=== PATIENT | female | born 1990 ===

== ENCOUNTER 2023-01-29 22:18 | Outpatient (CLI) | payer BC ==
[~2023-01-29] VITALS: Ht 154.9 cm; Wt 66.4 kg
[2023-01-29 22:53] LABS: CLARITY,URINE CLEAR; COLOR,URINE YELLOW; GLUCOSE, URINE (UA) NEGATIVE (NEGATIVE); PH,URINE 6.5 (5-9); PROTEIN,URINE NEGATIVE (NEGATIVE)
[2023-01-29 22:54] VITALS: BP 109/64
[2023-01-29 22:54] LABS: AMORPHOUS SEDIMENT,UR MOD AMOR URATES /LPF; BACTERIA,URINE TRACE /HPF; BILIRUBIN,URINE NEGATIVE (NEGATIVE); KETONES,URINE NEGATIVE (NEGATIVE); LEUKOCYTE ESTERASE ,URINE 3+ (NEGATIVE); NITRITE,URINE NEGATIVE (NEGATIVE); RBC,URINE 0-2 /HPF; SQUAMOUS EPITHELIAL CELL,UR >50 /HPF
--- NOTE | 2023-01-30 08:17 | Physician Query-Final Dx ---
KATELYNN,01/30/23 0817: Clinic Account Progress/Dx Physician Query: Please give diagnosis Please include # weeks gestation Date of Service Jan 29, 2023 at 22:18 YARON UNDERWOOD DO 01/30/23 1026: Clinic Account Progress/Dx DIAGNOSIS: Diagnosis 37 wk GA contractions, not in active labor KATELYNN,JunJan 30, 2023 08:17 YARON UNDERWOOD DO Jan 30, 2023 10:26
== END 2023-01-29 23:16 | disposition home or self-care (01) ==
LOC: LDRP 22:18 → WSo 22:18
PROVIDERS: ATTEND Family Medicine
DX: O47.1 False labor at or after 37 completed weeks of gestation (principal); Z3A.37 37 weeks gestation of pregnancy
CPT/HCPCS: 81000; 87088; G0463; 99213

== ENCOUNTER 2023-02-09 19:25 | Outpatient (CLI) | payer BC ==
[~2023-02-09] VITALS: Ht 155 cm; Wt 68.0 kg
[2023-02-09 19:48] VITALS: BP 124/73
[2023-02-09] MEDS ORDERED: PREN-142 PO (20:19)
[2023-02-09 20:24] LABS: BILIRUBIN,URINE NEGATIVE (NEGATIVE); CLARITY,URINE CLEAR; COLOR,URINE YELLOW; GLUCOSE, URINE (UA) NEGATIVE (NEGATIVE); KETONES,URINE NEGATIVE (NEGATIVE); LEUKOCYTE ESTERASE ,URINE 3+ (NEGATIVE); NITRITE,URINE NEGATIVE (NEGATIVE); PROTEIN,URINE NEGATIVE (NEGATIVE)
[2023-02-09 20:25] LABS: AMORPHOUS SEDIMENT,UR MOD AMOR PHOSPHATE /LPF; BACTERIA,URINE MODERATE /HPF
[2023-02-09 20:53] VITALS: BP 105/66
[2023-02-09 21:00] VITALS: BP 105/66
--- NOTE | 2023-02-10 08:10 | Physician Query-Final Dx ---
Clinic Account Progress/Dx Physician Query: Please give diagnosis Please include # weeks gestation Date of Service Feb 09, 2023 at 19:25 ,JunFeb 10, 2023 08:09
== END 2023-02-09 21:00 | disposition home or self-care (01) ==
LOC: LDRP 19:25 → WSo 19:25
PROVIDERS: ATTEND Family Medicine
DX: O62.9 Abnormality of forces of labor, unspecified (principal); Z3A.39 39 weeks gestation of pregnancy
CPT/HCPCS: 81000; 84112; 87088; 99213

== ENCOUNTER 2023-02-14 23:50 | Outpatient (CLI) | payer BC ==
[~2023-02-14] VITALS: Ht 162.6 cm; Wt 68.0 kg
[~2023-02-14 23:50] MED LIST: PREN-142 PO
[2023-02-15 00:12] VITALS: BP 115/56
[2023-02-15 01:55] VITALS: BP 113/74
--- NOTE | 2023-02-16 08:22 | Physician Query-Final Dx ---
,02/16/23 0822: Clinic Account Progress/Dx Physician Query: Please give diagnosis Please include # weeks gestation Date of Service Feb 14, 2023 at 23:50 SEAMUS SEYMOUR MD 02/18/23 1930: Clinic Account Progress/Dx DIAGNOSIS: Diagnosis 40 weeks gestation Rule out rupture of membranes- negative testing ,JunFeb 16, 2023 08:22 SEAMUS SEYMOUR MD Feb 18, 2023 19:30
[2023-02-18] MEDS ORDERED: IBUP-844 PO (08:22)
[2023-02-18] MEDS ORDERED: FERR325T24 PO (08:22)
[2023-02-18] MEDS ORDERED: DOCU100C37 PO (08:22)
== END 2023-02-15 01:30 | disposition home or self-care (01) ==
LOC: WSo 23:50 → LDRP 23:51 → WSo 02-15 01:30
PROVIDERS: ATTEND Family Medicine
DX: O62.9 Abnormality of forces of labor, unspecified (principal); Z3A.00 Weeks of gestation of pregnancy not specified
CPT/HCPCS: 99213

== ENCOUNTER 2023-02-16 07:00 | Inpatient (IN) | payer BC ==
[~2023-02-16] VITALS: Ht 155 cm; Wt 68.0 kg
--- OUTSIDE RECORDS SUMMARY | 2023-02-16 18:52 | XMS REPORT ---
Author Author Formerly [facility] Address Unknown Phone Unavailable Care Team Providers Care C S S Representative Name Role Phone YARON UNDERWOOD Unavailable PROBLEMS Type Condition ICD9-CM Code [id number] Code Onset Dates Condition Status W/U Status Risk SNOMED Code Notes Problem care in second trimester Z34.92 confirmed ALLERGIES No Known Allergies ENCOUNTERS from 1992 to 2022-10-30 Encounter Location Date Provider Diagnosis [facility] [address] [facility] [facility] [id number], [place] [address] Nov, YARON YASMINE Sexually transmitted disease (STD) A64 IMMUNIZATIONS Vaccine Route Administration Date Status 2nd Dose HRSA MODERNA, COVID -19, 0.5mL IM Intramuscular September 26, 2020 Administered 1st Dose COVID-19, mRNA, MOD PABLO, 0.5 mL 2020 IM Intramuscular August 23, 2020 Administered PRIVATE HEP B (ADULT) IM Intramuscular Jul 11, 2022 Ad ministered SOCIAL HISTORY Sex Assigned At : Social History Observation Description Sex Assigned At Unknown Sexual History Question Answer Notes Had sex in the past 12 months (vaginal, oral, or anal)? Yes Have you ever had a Sexually transmitted disease ? No with Men only Use protection? No PHQ2 Question Answer Notes In the last 2 weeks, how oft en have you had little interest or pleasure in doing things? Not at all In the last 2 weeks, how oft en have you been feeling down, depressed, or hopeless? Not at all Total PHQ2 Score 0 Tobacco use other than smoking: Question Answer Notes Are you an other tobacco user? No REASON FOR REFERRAL No Information MEDICATIONS Medication SIG (Take, Route, Fr equency, Duration) Notes Start Date End Date Status 28-0.8 MG 1 tablet Orally Once a day Active Tylenol 325 MG 1 tablet as needed O rally every 4 hrs prn Active REASON FOR VISIT STD treatment (STATE) MEDICAL (GENERAL) HISTORY Type Description Date Hospitalization History childbirth only MENTAL STATUS No Information ASSESSMENTS Encounter Date Diagnosis Assessment Notes Treatment Notes Treatment Clinical Notes Nov, Sexually transmitted disease (STD) (ICD-10 - A64) PLAN OF TREATMENT No Information
--- OUTSIDE RECORDS SUMMARY | 2023-02-16 18:52 | XMS REPORT ---
Author Author Formerly [facility] Address Unknown Phone Unavailable Care Team Providers Care Core Composer Feeder Name Role Phone JLUIS TENA Unavailable PROBLEMS Type Condition ICD9-CM Code [id number] Code Onset Dates Condition Status W/U Status Risk SNOMED Code Notes Problem care in second trimester Z34.92 confirmed ALLERGIES No Known Allergies ENCOUNTERS from 1992 to 2022-10-22 Encounter Location Date Provider Diagnosis [facility] [address] [facility] [id number] [address] Nov, JLUIS TENA Acute vaginitis N76.0 ; Pelvic pain R10.2 and Other specified bacterial agents as the cause of diseases classified elsewhere B96.89 IMMUNIZATIONS Vaccine Route Administration Date Status PRIVATE HEP B (ADULT) IM Intramuscular Jul 11, 2022 Ad ministered 2nd Dose HRSA MODERNA, COVID -19, 0.5mL IM Intramuscular September 26, 2020 Administered 1st Dose COVID-19, mRNA, MOD PABLO, 0.5 mL 2020 IM Intramuscular August 23, 2020 Administered SOCIAL HISTORY Sex Assigned At : Social [...] user? No REASON FOR REFERRAL No Information VITAL SIGNS Height 5'3" in Nov, Height-cm 160.02 cm Nov, Weight 128 lbs Nov, Weight-kg 58.06 kg Nov, Temperature 97.0 degrees Fahrenheit Nov, Heart Rate 76 bpm Nov, Respiratory Rate 18 bpm Nov, Oximetry 98 % Nov, BMI 22.67 kg/m2 Nov, Blood pressure systolic 110 mmHg Nov, Blood pressure diastolic 70 mmHg Nov, MEDICATIONS Medication SIG (Take, Route, Fr equency, Duration) Notes Start Date End Date Status 28-0.8 MG 1 tablet Orally Once a day Active Tylenol 325 MG 1 tablet as needed O rally every 4 hrs prn Active REASON FOR VISIT pelvic pain and pressure with urination since yesterday --yoselin moura MEDICAL (GENERAL) HISTORY Type Description Date Hospitalization History childbirth only MENTAL STATUS No Information ASSESSMENTS Encounter Date Diagnosis Assessment Notes Treatment Notes Treatment Clinical Notes Nov, Pelvic pain (ICD-10 - R10.2) Pelvic Pain: Care Instructions material was printed, Pelvic Pain: Care Instructions material was printed Nov, Acute vaginitis (ICD-10 - N76.0) Vaginitis: Care Instructions material was printed, Vaginitis: Care Instructions material was printed Nov, Other specified bacterial agents as the cause of diseases classified elsewhere (ICD-10 - B96.89) Nov, Other Medications as prescribed, rest as able, push fluids, call/return if symptoms worsen or do not improve. Pediatric UTI's: Avoid giving little girls bubble-baths or allowing her to sit in soapy bath water for very long. It's ok for her to take a bath in plain water, but she should play in the tub first, and wait until the end of the bath before using soap or shampoo, then get out of the tub as soon as possible. Encourage wiping "[id number]". Encourage to sit on the toilet with her legs spread wide open, to avoid small amounts of urine becoming trapped between the labia and causing irritation. Push fluids to maintain hydration and flush urinary track. Adult UTI: 1. Avoid bubble baths. Voiding after sexual intercourse for adult females will assist to flush potential bacteria from the urinary tract. Proper bathroom hygein wiping front to bacl. Maintain proper hydration with lots of water daily avoiding sodas as able. Pushing fluids helps to maintain hydration and flush urinary system. , Pelvic Pain: Care Instructions material was printed, Vaginitis: Care Instructions material was printed PLAN OF TREATMENT Treatment Notes Assessment Notes Clinical Notes Pelvic pain Pelvic Pain: Care In structions material was printed, Pelvic Pain: Care Instructions material was printed Acute vaginitis Vaginitis: Care Inst ructions material was printed, Vaginitis: Care Instructions material was printed Next Appt Details if not improving or regular follow up with pcp Reason: Provider Name:JAKE DODD , 2022-10-22 03:40:00 PM, [address], [place], [address],
--- OUTSIDE RECORDS SUMMARY | 2023-02-16 18:52 | XMS REPORT ---
Author Author [facility] Address Unknown Phone Unavailable Care Team Providers Care Hosiery Pairer Name Role Phone RENITA STANFORD Unavailable PROBLEMS Type Condition ICD9-CM Code [id number] Code Onset Dates Condition Status W/U Status Risk SNOMED Code Notes Problem care in second trimester Z34.92 confirmed Problem Sore throat J02.9 confirmed [id number] Problem Urine troubles R39.89 confirmed [id number] ALLERGIES No Known Allergies ENCOUNTERS from 1992 to 2022-11-22 Encounter Location Date Provider Diagnosis [facility] [address] [facility] [id number] [address] Dec, RENITA STANFORD History of chlamydia Z86.19 ; Encounter to establish care Z76.89 and STD (female) A64 IMMUNIZATIONS Vaccine Route Administration Date Status PRIVATE [...] No Information VITAL SIGNS Height 5'3" in Dec, Height-cm 160.02 cm Dec, Weight 125.6 lbs Dec, Weight-kg 56.97 kg Dec, Temperature 97.3 degrees Fahrenheit Dec, Heart Rate 73 bpm Dec, Respiratory Rate 18 bpm Dec, Oximetry 98 % Dec, BMI 22.25 kg/m2 Dec, Blood pressure systolic 126 mmHg Dec, Blood pressure diastolic 68 mmHg Dec, MEDICATIONS Medication SIG (Take, Route, Fr equency, Duration) Notes Start Date End Date Status 28-0.8 MG 1 tablet Orally Once a day Active Amoxicillin 875 MG 1 tablet Orally Twic e a day for 5 days Nov, Active Tylenol 325 MG 1 tablet as needed O rally every 4 hrs prn Active REASON FOR VISIT Establish Care -[place] GONZALES MEDICAL (GENERAL) HISTORY Type Description Date Hospitalization History childbirth only MENTAL STATUS No Information ASSESSMENTS Encounter Date Diagnosis Assessment Notes Treatment Notes Treatment Clinical Notes Dec, Encounter to establish care (ICD-10 - Z76.89) Make appointment for well woman exam. Fill out EDW paperwork prior to appointment if no insurance coverage. Dec, History of chlamydia (ICD-10 - Z86.19) Patient will be notified of results when available. Dec, STD (female) (ICD-10 - A64) PLAN OF TREATMENT Medication Medication Name Sig Start Date Stop Date Amoxicillin 875 MG 1 tablet Orally Twice a day for 5 d ays Nov, Treatment Notes Assessment Notes Clinical Notes Encounter to establish care Make appoint ment for well woman exam. Fill out EDW paperwork prior to appointment if no insurance coverage. History of chlamydia Patient will be not ified of results when available. Next Appt Details Make appointment for well wo man exam. Reason: Provider Name:JAKE DODD , 2022-11-24 04:20:00 PM, [address], [place], [address],
[2023-02-16 19:28] VITALS: BP 131/62
[2023-02-16] MEDS ORDERED: AMPICILLIN (IV) 2,000 MG in NS (IVPB) 50 ML 50 ML IV ONE (19:48)
[2023-02-16 19:58] LABS: BASOPHILS % (AUTO) 1 % (0-10); EOSINOPHILS # (AUTO) 0.8 10^3/uL (0.0-0.3); EOSINOPHILS % (AUTO) 11 % (0-10); HEMATOCRIT 36 % (35-52); HEMOGLOBIN 12.1 g/dL (11.5-16.0); LYMPHOCYTES # (AUTO) 1.6 10^3/uL (1.0-4.0); LYMPHOCYTES % (AUTO) 22 % (12-44); MEAN CORPUSCULAR HEMOGLOBIN 30 pg (25-34); MEAN CORPUSCULAR HGB CONC 34 g/dL (32-36); MEAN CORPUSCULAR VOLUME 89 fL (80-99); MEAN PLATELET VOLUME 11.1 fL (9.0-12.2); MONOCYTES # (AUTO) 0.6 10^3/uL (0.0-1.0); MONOCYTES % (AUTO) 8 % (0-12); NEUTROPHILS # (AUTO) 4.3 10^3/uL (1.8-7.8); NEUTROPHILS % (AUTO) 58 % (42-75); PLATELET COUNT 203 10^3/uL (130-400); WHITE BLOOD COUNT 7.4 10^3/uL (4.3-11.0)
[2023-02-16] MEDS ORDERED: MINERAL OIL 30 ML UDC TOP PRN (20:00)
[2023-02-16] MEDS ORDERED: LACTATED RINGERS 1,000 ML 500 ML IV PRN (20:00)
[2023-02-16] MEDS ORDERED: LIDOCAINE 2% w/EPI 1:200,000 20 ML VIAL INJ PRN (20:00)
[2023-02-16] MEDS: D5 LR 1,000 ML IV SOLN 1,000 ML IV SCH (20:23)
[2023-02-16] MEDS: CATHETER FLUSH 10 ML SYR IV SCH (22:54)
[2023-02-16 23:09] LABS: CLARITY,URINE CLEAR; COLOR,URINE YELLOW; GLUCOSE, URINE (UA) NEGATIVE (NEGATIVE); KETONES,URINE NEGATIVE (NEGATIVE); PROTEIN,URINE NEGATIVE (NEGATIVE)
[2023-02-16 23:10] LABS: AMORPHOUS SEDIMENT,UR FEW AMOR PHOSPHATE /LPF; BACTERIA,URINE TRACE /HPF; BILIRUBIN,URINE NEGATIVE (NEGATIVE); LEUKOCYTE ESTERASE ,URINE 3+ (NEGATIVE); NITRITE,URINE NEGATIVE (NEGATIVE); RBC,URINE 0-2 /HPF
[2023-02-16 23:20] VITALS: BP 127/67
[2023-02-17] VITALS (70 sets, daily range): BP systolic 86–150; BP diastolic 49–96
[2023-02-17] MEDS ORDERED: BUTORPHANOL INJ 2 MG/ML VIAL IV PRN (00:30)
[2023-02-17] MEDS: AMPICILLIN (IV) 1,000 MG in NS (IVPB) 50 ML 50 ML IV SCH ×4 (00:40→12:30)
[2023-02-17] MEDS: D5 LR 1,000 ML IV SOLN 1,000 ML IV SCH ×2 (04:37→13:58)
[2023-02-17] MEDS ORDERED: LACTATED RINGERS 1,000 ML 1,000 ML IV ONE ×2 (05:00→06:30)
[2023-02-17] MEDS ORDERED: fentaNYL 2 mcg/ml BUPIVA 0.125 100 ML ONE (05:18)
[2023-02-17] MEDS ORDERED: BUPIVACAINE 0.25% 10 ML VIAL ONE (05:50)
[2023-02-17] MEDS ORDERED: fentaNYL INJECTION 100 MCG/2 ML VIAL ONE (05:50)
[2023-02-17] MEDS: CATHETER FLUSH 10 ML SYR IV SCH (06:00)
[2023-02-17] MEDS ORDERED: NALOXONE 0.4 MG/ML 1 ML VIAL IV PRN (06:30)
[2023-02-17] MEDS ORDERED: CATHETER FLUSH 10 ML SYR IV PRN (06:30)
[2023-02-17] MEDS: fentaNYL 2 mcg/ml BUPIVA 0.125 100 ML EPI SCH ×3 (06:52→16:39)
[2023-02-17] MEDS ORDERED: OXYTOCIN DRIP PRE-MIX 500 ML IV SCH (07:00)
[2023-02-17] MEDS ORDERED: ONDANSETRON INJECTION 4 MG/2 ML (SDV) IVP PRN (10:00)
--- NOTE | 2023-02-17 15:21 | History & Physical-OB ---
OB - Chief Complaint & HPI Date/Time Date of Admission: Date of Admission: Feb 16, 2023 at 18:49 Date seen by a Provider: Feb 17, 2023 Time Seen by a Provider: 12:40 Chief Complaint/History OB-Reason for Admission/Chief: Onset of Labor Hx : 2 Hx Para: 1 Expected Date of Delivery: Feb 14, 2023 Gestational Age in Weeks: 40 Gestational Age in Days: 2 Other reason for admission: Patient came in for induction however was suzanne and did not need induced. She was already in active labor and made cervical change from 1-4 on her own and SROM at midnight clear. History of Labs O+, Ab neg, Rub NON IMMUNE, HIV/RPR/HepB/C NR, GC/chyl neg GBS + urine Normal 1 hr GTT Allergies and Home Medications Allergies Coded Allergies: No Known Drug Allergies (Unverified , 01/29/23) Patient Home Medication List Home Medication List Reviewed: Yes Vit No.124/Iron/FA ( Vitamin Tablet) 27 Mg Iron-800 Mcg Tablet, 1 EACH PO DAILY, (Reported) Entered as Reported by: SONYA FARFAN on 02/09/232018 OB - History Hx of Present Care: Yes Ultrasounds: Normal mid trimester US Obstetrical Complications: None Medical Complications: None Obstetrical History Hx : 2 Hx Para: 1 Hx # Term Pregnancies: 1 Number of Living Children: 1 Patient Past Medical History None Social History/Family History Alcohol Use: Denies Use Recreational Drug Use: No Smoking Cessation: Never smoker 2nd Hand Smoke Exposure: No Immunizations Tetanus Booster (TDap): Less than 5yrs (12/16/22) Rubella: not immune RPR/VDRL: Negative GBS Status: Positive HBsAG: Negative OB - Admission Exam Physical Exam Vitals: Vital Signs 02/17/23 02/17/23 02/17/23 10:30 13:00 14:00 Temp 36.9 Pulse 81 Resp 20 B/P (MAP) 119/80 (93) Pulse Ox 100 O2 Delivery Room Air O2 Flow Rate 15.00 HEENT: NCAT Heart: Rhythm Normal Lungs: Clear Abdomen: Gravid Cervical Dilatation: 6cm Effacement: 100% Station: -1 Membranes: Ruptured Amniotic Fluid: Clear Heart Rate: 130's Accelerations: Accelerations Present Decelerations: Variable Decelerations Short Term Variability: Present Skilled Nursing Variability: Average (6-25) Contractions on Admission: < 5 Minutes Apart Intensity: Firm Labs Laboratory Tests Test 02/16/23 19:00 02/16/23 19:20 02/16/23 22:19 Range/Units Urine Color YELLOW Urine Clarity CLEAR Urine pH 7.0 5-9 Urine Specific [place] 1.020 1.016-1.022 Urine Protein NEGATIVE NEGATIVE Urine Glucose (UA) NEGATIVE NEGATIVE Urine Ketones NEGATIVE NEGATIVE Urine Nitrite NEGATIVE NEGATIVE Urine Bilirubin NEGATIVE NEGATIVE Urine Urobilinogen 0.2 < = 1.0 MG/DL Urine Leukocyte Esterase 3+ H NEGATIVE Urine RBC (Auto) 1+ H NEGATIVE Urine RBC 0-2 /HPF Urine WBC 5-10 H /HPF Urine Crystals PRESENT H /LPF Urine Amorphous Sediment FEW JESSICA PHOSPHATE H /LPF Urine Bacteria TRACE /HPF Urine Casts NONE /LPF Urine Mucus SMALL H /LPF Urine Culture Indicated YES White Blood Count 7.4 4.3-11.0 10^3/uL Red Blood Count 4.05 3.80-5.11 10^6/uL Hemoglobin 12.1 11.5-16.0 g/dL Hematocrit 36 35-52 % Mean Corpuscular Volume 89 80-99 fL Mean Corpuscular Hemoglobin 30 25-34 pg Mean Corpuscular Hemoglobin Concent 34 32-36 g/dL Red Cell Distribution Width 13.4 10.0-14.5 % Platelet Count 203 130-400 10^3/uL Mean Platelet Volume 11.1 9.0-12.2 fL Immature Granulocyte % (Auto) 0 % Neutrophils (%) (Auto) 58 42-75 % Lymphocytes (%) (Auto) 22 12-44 % Monocytes (%) (Auto) 8 0-12 % Eosinophils (%) (Auto) 11 H 0-10 % Basophils (%) (Auto) 1 0-10 % Neutrophils # (Auto) 4.3 1.8-7.8 10^3/uL Lymphocytes # (Auto) 1.6 1.0-4.0 10^3/uL Monocytes # (Auto) 0.6 0.0-1.0 10^3/uL Eosinophils # (Auto) 0.8 H 0.0-0.3 10^3/uL Basophils # (Auto) 0.0 0.0-0.1 10^3/uL Immature Granulocyte # (Auto) 0.0 0.0-0.1 10^3/uL Syphilis Total Antibody Negative Negative Membranes Rupture NEGATIVE OB - Assessment/Plan/Diagnosis Assessment Assessment: active labor Admission Dx third Trimester 40 week gestation GBS + in urine culture Admission Status: Inpatient Order (span 2 midnights) Reason for Inpatient Admission: Labor and post care Plan Other Plan 32 yo @ 40.2 wga here in active labor Plan - GBS, Started on ampicillin for ppx - Plan to augment labor - epidural in place BEN GONZALEZ MD Feb 17, 2023 15:21
--- NOTE | 2023-02-17 15:25 | OB Labor & Delivery Record ---
Vag Delivery Note Vag Delivery Note Date of Delivery: 02/17/23 Preoperative Diagnosis: Faye Donohue is a (32 /Para / , Gestational Age (wks)40.2 here in active labor Postoperative Diagnosis: Same Surgeon: BEN GONZALEZ MD Candy Spreader Helper: Lawanda Cowart MS4 Anesthesia: Epidural Delivery Type: @1457 Findings: Viable male infant, apgars 8/9, weight 7#2, 3240 grams Lacerations: 1st degree perieneal laceration Terminal Meconium Intact placenta with 3 vessel cord. No nuchal cord, body cord or shoulder dystocia Estimated Blood Loss: 150 ml Complications: None Condition: Stable Description of Procedure: The patient is a 32 year old female who presented in active labor. She was admitted and informed consent was obtained. Her labor course was remarkable for pitocin augmentation. She progressed to complete dilatation and began to push. She was then set up for delivery. The infant's head was delivered atraumatically in the SUGAR position. The shoulders and remainder of the 's body were then delivered without difficulty. Upon delivery, the infant was vigorous and placed on maternal chest and the mouth and nares were bulb suctioned. After a 2 min delay cord was doubly clamped and cut by aunt of infant and the infant remained on maternal chest and attended to by nursery nurse. An intact placenta with 3- vessel cord delivered @1501 via Christy and there was found to be minimal bleeding.~ Vigorous fundal massage was performed and the fundus was found to be firm. IV oxytocin was given. Examination of the vagina and perineum revealed a 1st degree laceration repaired in the usual fashion with 3-0 vicryl rapide suture. Following the repair, sponge, instrument and needle counts were correct. Mom and baby were both in stable condition in the labor suite. Vitals - Labs Vital Signs - I&O Vital Signs Date Time Temp Pulse Resp B/P (MAP) Pulse Ox O2 Delivery O2 Flow Rate FiO2 02/17/23 14:00 81 20 119/80 (93) 100 Room Air 02/17/23 13:45 74 20 111/73 (86) 100 Room Air 02/17/23 13:30 81 20 121/81 (94) 100 Room Air 02/17/23 13:15 83 20 122/79 (93) 100 Room Air 02/17/23 13:00 77 20 125/85 (98) 100 Non Rebreather 15.00 02/17/23 12:45 74 20 109/73 (85) 100 Non Rebreather 15.00 02/17/23 12:30 78 20 109/70 (83) 100 Non Rebreather 15.00 02/17/23 12:15 67 20 100/66 (77) 100 Non Rebreather 15.00 02/17/23 12:00 72 20 102/67 (79) 100 Non Rebreather 15.00 02/17/23 11:45 71 20 106/69 (81) 100 Non Rebreather 15.00 02/17/23 11:30 67 20 110/72 (85) 100 Non Rebreather 15.00 02/17/23 11:15 56 20 108/64 (79) 100 Non Rebreather 15.00 02/17/23 11:00 61 20 124/75 (91) 100 Non Rebreather 15.00 02/17/23 10:45 62 20 123/75 (91) 100 Room Air 02/17/23 10:30 36.9 55 20 131/67 (88) 100 Room Air 02/17/23 10:15 54 20 130/66 (87) 100 Room Air 02/17/23 10:00 54 20 130/66 (87) 100 Room Air 02/17/23 09:45 72 20 123/89 (100) 97 Room Air 02/17/23 09:30 63 20 111/70 (84) 100 Room Air 02/17/23 09:15 65 20 118/66 (83) 100 Room Air 02/17/23 09:00 60 20 114/60 (78) 100 Room Air 02/17/23 08:45 20 100 Room Air 02/17/23 08:30 54 20 104/65 (78) 100 Room Air 02/17/23 08:15 68 20 96/53 (67) 100 Room Air 02/17/23 08:00 60 20 98/57 (71) 100 Room Air 02/17/23 07:30 58 20 90/53 (65) 100 Room Air 02/17/23 07:25 50 20 91/53 (66) 99 Room Air 02/17/23 07:20 53 20 90/50 (63) 99 Room Air 02/17/23 07:15 56 20 98/57 (71) 100 Room Air 02/17/23 07:10 70 20 91/51 (64) 100 Room Air 02/17/23 07:05 62 20 105/58 (74) 99 Room Air 02/17/23 07:00 37.0 64 20 91/53 (66) 99 Room Air 02/17/23 06:55 53 92/55 (67) 99 Room Air 02/17/23 06:51 77 93/54 (67) Room Air 02/17/23 06:50 90 86/61 (69) Room Air 02/17/23 06:46 60 97/57 (70) 99 Room Air 02/17/23 06:43 73 18 101/59 (73) 99 Room Air 02/17/23 06:40 62 99/54 (69) 02/17/23 06:37 59 97/56 (70) 98 Room Air 02/17/23 06:34 64 104/60 (75) Room Air 02/17/23 06:31 108 98/56 (70) 99 Room Air 02/17/23 06:28 80 18 106/59 (75) 99 Room Air 02/17/23 06:25 76 107/57 (74) 02/17/23 06:22 68 20 104/61 (75) 98 Room Air 02/17/23 06:19 77 99/57 (71) 02/17/23 06:16 76 20 121/68 (85) 99 Room Air 02/17/23 06:13 89 111/70 (84) 02/17/23 06:12 85 113/72 (86) 02/17/23 06:09 80 113/76 (88) 02/17/23 06:06 85 118/73 (88) 100 Room Air 02/17/23 06:03 119/75 (90) 02/17/23 06:00 82 18 124/75 (91) 99 Room Air 02/17/23 04:35 37.3 92 20 114/64 (81) 99 Room Air 02/17/23 01:57 37.1 02/16/23 23:20 37.3 70 18 127/67 (87) 99 Room Air 02/16/23 19:28 37.6 70 18 99 Room Air I & O 02/17/23 07:00 Intake Total 1114.8 ml Balance 1114.8 ml Labs Laboratory Tests 02/16/23 19:00: Urine Color YELLOW, Urine Clarity CLEAR, Urine pH 7.0, Urine Specific [place] 1.020, Urine Protein NEGATIVE, Urine Glucose (UA) NEGATIVE, Urine Ketones NEGATIVE, Urine Nitrite NEGATIVE, Urine Bilirubin NEGATIVE, Urine Urobilinogen 0.2, Urine Leukocyte Esterase 3+H, Urine RBC (Auto) 1+H, Urine RBC 0-2, Urine WBC 5-10H, Urine Crystals PRESENTH, Urine Amorphous Sediment FEW JESSICA PHOSPHATEH , Urine Bacteria TRACE, Urine Casts NONE, Urine Mucus SMALLH, Urine Culture In dicated YES 02/16/23 19:20: White Blood Count 7.4, Red Blood Count 4.05, Hemoglobin 12.1, Hematocrit 36, Me an Corpuscular Volume 89, Mean Corpuscular Hemoglobin 30, Mean Corpuscular Hemoglobin Concent 34, Red Cell Distribution Width 13.4, Platelet Count 203, Mean Platelet Volume 11.1, Immature Granulocyte % (Auto) 0, Neutrophils (%) (Auto) 58, Lymphocytes (%) (Auto) 22, Monocytes (%) (Auto) 8, Eosinophils (%) (Auto) 11H, Basophils (%) (Auto) 1, Neutrophils # (Auto) 4.3, Lymphocytes # (Auto) 1.6, Monocytes # (Auto) 0.6, Eosinophils # (Auto) 0.8H, Basophils # (Auto) 0.0, Immature Granulocyte # (Auto) 0.0, Syphilis Total Antibody Negative 02/16/23 22:19: Membranes Rupture NEGATIVE BEN GONZALEZ MD Feb 17, 2023 15:25
[2023-02-17] MEDS ORDERED: WITCH HAZEL(TUCKS) 40 EA JAR TOP PRN (15:30)
[2023-02-17] MEDS ORDERED: BENZOCAINE/MENTHOL (DERMOPLAST) 56 ML CAN TP PRN (15:30)
[2023-02-17] MEDS ORDERED: MEASLES, MUMPS, RUBELLA VACCINE (MMR) SQ ONE (15:30)
[2023-02-17] MEDS ORDERED: IBUPROFEN 600 MG TABLET PO ONE (15:35)
[2023-02-17] MEDS: OXYTOCIN DRIP PRE-MIX 500 ML IV SCH ×2 (15:38→23:24)
[2023-02-17] MEDS: IBUPROFEN 600 MG TABLET PO SCH ×2 (15:39→22:12)
[2023-02-17] MEDS ORDERED: ACETAMINOPHEN 500 MG TABLET ONE (15:40)
[2023-02-17] MEDS: ACETAMINOPHEN 500 MG TABLET PO SCH ×2 (15:41→22:12)
[2023-02-17] MEDS ORDERED: CATHETER FLUSH 10 ML SYR IV SCH (22:00)
[2023-02-17] MEDS: DOCUSATE SODIUM 100 MG CAPSULE PO SCH (22:12)
[2023-02-18 02:17] VITALS: BP 86/54
[2023-02-18] MEDS: ACETAMINOPHEN 500 MG TABLET PO SCH ×3 (03:58→17:14)
[2023-02-18] MEDS: IBUPROFEN 600 MG TABLET PO SCH ×3 (03:59→17:14)
[2023-02-18 06:10] VITALS: BP 87/50
[2023-02-18 06:28] LABS: BASOPHILS # (AUTO) 0.1 10^3/uL (0.0-0.1); BASOPHILS % (AUTO) 0 % (0-10); EOSINOPHILS # (AUTO) 0.7 10^3/uL (0.0-0.3); EOSINOPHILS % (AUTO) 6 % (0-10); HEMATOCRIT 28 % (35-52); HEMOGLOBIN 9.4 g/dL (11.5-16.0); LYMPHOCYTES # (AUTO) 1.8 10^3/uL (1.0-4.0); LYMPHOCYTES % (AUTO) 15 % (12-44); MEAN CORPUSCULAR HEMOGLOBIN 30 pg (25-34); MEAN CORPUSCULAR HGB CONC 34 g/dL (32-36); MEAN CORPUSCULAR VOLUME 90 fL (80-99); MEAN PLATELET VOLUME 11.8 fL (9.0-12.2); MONOCYTES # (AUTO) 0.6 10^3/uL (0.0-1.0); MONOCYTES % (AUTO) 5 % (0-12); NEUTROPHILS # (AUTO) 8.8 10^3/uL (1.8-7.8); NEUTROPHILS % (AUTO) 74 % (42-75); PLATELET COUNT 148 10^3/uL (130-400)
--- NOTE | 2023-02-18 07:22 | Anesthesia-Regional Post-Op ---
Regional Patient Condition Mental Status: Alert, Oriented x3 Circulation: Same as Pre-Op Headache: Absent Sensation: Full Recovery Motor Block: Absent Post Op Complications Complications None Follow Up Care/Instructions Patient Instructions None needed. Anesthesia/Patient Condition Patient is doing well, no complaints, stable vital signs, no apparent adverse anesthesia problems. No complications reported per nursing. D/C home per [facility] Criteria: Yes LANE ELIZONDO CRNA Feb 18, 2023 07:22
[2023-02-18] MEDS ORDERED: DOCU100C37 PO (08:22)
[2023-02-18] MEDS ORDERED: IBUP-844 PO (08:22)
[2023-02-18] MEDS ORDERED: FERR325T24 PO (08:22)
[2023-02-18 08:49] LABS: BASOPHILS % (AUTO) 0 % (0-10); EOSINOPHILS # (AUTO) 0.7 10^3/uL (0.0-0.3); EOSINOPHILS % (AUTO) 7 % (0-10); HEMATOCRIT 33 % (35-52); HEMOGLOBIN 10.9 g/dL (11.5-16.0); LYMPHOCYTES # (AUTO) 1.7 10^3/uL (1.0-4.0); LYMPHOCYTES % (AUTO) 16 % (12-44); MEAN CORPUSCULAR HEMOGLOBIN 30 pg (25-34); MEAN CORPUSCULAR HGB CONC 33 g/dL (32-36); MEAN CORPUSCULAR VOLUME 91 fL (80-99); MEAN PLATELET VOLUME 10.5 fL (9.0-12.2); MONOCYTES # (AUTO) 0.5 10^3/uL (0.0-1.0); MONOCYTES % (AUTO) 5 % (0-12); NEUTROPHILS # (AUTO) 7.7 10^3/uL (1.8-7.8); NEUTROPHILS % (AUTO) 72 % (42-75); PLATELET COUNT 169 10^3/uL (130-400); WHITE BLOOD COUNT 10.7 10^3/uL (4.3-11.0)
[2023-02-18] MEDS ORDERED: FERROUS SULFATE 325 MG (IRON) TABLET PO SCH (09:00)
[2023-02-18 09:50] VITALS: BP 92/57
[2023-02-18] MEDS: DOCUSATE SODIUM 100 MG CAPSULE PO SCH (09:58)
[2023-02-18 14:05] VITALS: BP 89/53
--- NOTE | 2023-02-18 17:17 | Discharge Summary ---
Discharge Summary Hospital Course Hospital Course Date of Admission: Feb 16, 2023 at 18:49 Admission Diagnosis : Active labor at full term [facility] Physician/Provider: Paige Guadalupe MD Date of Discharge: 02/18/23 Discharge Diagnosis: s/p spontaneous vaginal delivery asymptomatic acute blood loss anemia Hospital Course: Pt admitted and had routine labor, delivery and course. Discharged with iron supplementation. Labs and Pending Lab Test: Laboratory Tests 02/18/23 05:35: White Blood Count 12.0H, Red Blood Count 3.12L, Hemoglobin 9.4#L, Hematocrit 28L , Mean Corpuscular Volume 90, Mean Corpuscular Hemoglobin 30, Mean Corpuscular Hemoglobin Concent 34, Red Cell Distribution Width 13.8, Platelet Count 148, Mean Platelet Volume 11.8, Immature Granulocyte % (Auto) 0, Neutrophils (%) (Auto) 74, Lymphocytes (%) (Auto) 15, Monocytes (%) (Auto) 5, Eosinophils (%) (Auto) 6, Basophils (%) (Auto) 0, Neutrophils # (Auto) 8.8H, Lymphocytes # (Auto) 1.8, Monocytes # (Auto) 0.6, Eosinophils # (Auto) 0.7H, Basophils # (Auto) 0.1, Immature Granulocyte # (Auto) 0.0 02/18/23 08:40: White Blood Count 10.7, Red Blood Count 3.63L, Hemoglobin 10.9L, Hematocrit 33L, Mean Corpuscular Volume 91, Mean Corpuscular Hemoglobin 30, Mean Corpuscular Hemoglobin Concent 33, Red Cell Distribution Width 13.8, Platelet Count 169, Mean Platelet Volume 10.5, Immature Granulocyte % (Auto) 0, Neutrophils (%) (Auto) 72, Lymphocytes (%) (Auto) 16, Monocytes (%) (Auto) 5, Eosinophils (%) (Auto) 7, Basophils (%) (Auto) 0, Neutrophils # (Auto) 7.7, Lymphocytes # (Auto) 1.7, Monocytes # (Auto) 0.5, Eosinophils # (Auto) 0.7H, Basophils # (Auto) 0.0, Immature Granulocyte # (Auto) 0.0 Microbiology 02/16/23 Urine Culture - Final, Complete Growth Consistent Home Meds Active Docusate Sodium 100 Mg Capsule 100 Mg PO BID Ibu (Ibuprofen) 600 Mg Tablet 600 Mg PO Q6H PRN Ferosul (Ferrous Sulfate) 325 Mg (65 Mg Iron) Tablet 325 Mg PO EVERY OTHER DAY Reported Vitamin Tablet ( Vit No.124/Iron/FA) 27 Mg Iron-800 Mcg Tablet 1 Each PO DAILY Assessment/Pt DC Instructions Follow up with Dr. Guadalupe in 6 weeks. Discharge Diet: No Restrictions Activity as Tolerated: Yes (avoid strenuous activity x 6 weeks) Discharge Physical Examination Allergies: Coded Allergies: No Known Drug Allergies (Unverified , 01/29/23) General Appearance: No Apparent Distress, WD/WN Respiratory: Lungs Clear, Normal Breath Sounds Cardiovascular: Regular Rate, Rhythm, No Murmur Extremity: No Pedal Edema Skin: Normal Color, Warm/Dry Neurologic/Psychiatric: Alert, Normal Mood/Affect SEAMUS SEYMOUR MD Feb 18, 2023 17:17
[2023-02-18 20:00] VITALS: BP 89/53
== END 2023-02-18 20:00 | disposition home or self-care (01) | DRG 806 ==
LOC: LDRP 18:49
PROVIDERS: ADMIT Family Medicine; ATTEND Family Medicine
PROC: 10E0XZZ Delivery of Products of Conception, External Approach (ICD-10-PCS; principal; 2023-02-17)
PROC: 0HQ9XZZ Repair Perineum Skin, External Approach (ICD-10-PCS; 2023-02-17)
DX: O48.0 Post-term pregnancy (principal); D62 Acute posthemorrhagic anemia; Z37.0 Single live birth; Z3A.40 40 weeks gestation of pregnancy; O99.824 Streptococcus B carrier state complicating childbirth; O70.0 First degree perineal laceration during delivery; O77.0 Labor and delivery complicated by meconium in amniotic fluid; O90.81 Anemia of the puerperium
CPT/HCPCS: 36415; 81000; 84112; 85025; 86780; 86850; 86900; 86901; 87088